=== PATIENT | male | born 1955 | race Hispanic/Latino ===

== ENCOUNTER → 2019-08-31 | Outpatient (RCR) | payer BC | LOC: PT 08-10 10:22 | PROVIDERS: ATTEND Specialist | DX: M87.051 Idiopathic aseptic necrosis of right femur (principal) ==

== ENCOUNTER → 2019-10-01 | Outpatient (RCR) | payer BC | LOC: PT 09-02 10:33 | PROVIDERS: ATTEND Specialist | DX: M87.051 Idiopathic aseptic necrosis of right femur (principal) | CPT/HCPCS: 97139 ==

== ENCOUNTER 2020-12-12 06:33 | Observation (INO) | payer BC ==
[2020-12-11 09:44] LABS: BASOPHILS % 0.4 % (0.0-1.0); EOSINOPHILS # (AUTO) 0.1 (0.0-0.4); EOSINOPHILS % 1.1 % (0.0-6.0); HEMATOCRIT 45.5 % (38.2-49.6); HEMOGLOBIN 14.9 g/dL (14.0-18.0); LYMPHOCYTES # (AUTO) 1.4 (1.0-3.2); LYMPHOCYTES % 19.3 % (18.0-39.1); MEAN CORPUSCULAR HEMOGLOBIN 32.6 pg (28-32); MEAN CORPUSCULAR HGB CONC 32.7 g/dL (31-35); MEAN CORPUSCULAR VOLUME 99.6 fL (81-99); MONOCYTES # (AUTO) 0.9 (0.2-0.8); MONOCYTES % 11.7 % (4.4-11.3); NEUTROPHILS # (AUTO) 4.9 (2.1-6.9); NEUTROPHILS % 67.1 % (38.7-80.0); PLATELET COUNT 217 x10e3/uL (140-360); RED BLOOD COUNT 4.57 x10e6/uL (4.3-5.7); RED CELL DISTRIBUTION WIDTH 14.4 % (11.7-14.4)
[~2020-12-12] VITALS: Ht 167.6 cm; Wt 78.9 kg
[~2020-12-12 06:33] MED LIST: CHOLESTEROL MED
[2020-12-12] MEDS ORDERED: CELECOXIB 200 MG CAP ONE (07:01)
[2020-12-12] MEDS ORDERED: DEXAMETHASONE SOD PHOS 10 MG/1 ML VIAL ONE (07:01)
[2020-12-12] MEDS ORDERED: SODIUM CHLORIDE 0.9% 50ML 100 ML ONE (07:02)
[2020-12-12] MEDS ORDERED: GABAPENTIN 300 MG CAP ONE (07:02)
[2020-12-12] MEDS ORDERED: SODIUM CHLORIDE 0.9% 500ML 500 ML ONE (07:17)
[2020-12-12] MEDS ORDERED: TRANEXAMIC ACID 1,000 MG/10 ML ML ONE (07:18)
[2020-12-12] MEDS ORDERED: Vancomycin IV 1,000 MG ONE (07:18)
[2020-12-12] MEDS ORDERED: GLUCOSAMIN-CHO1 EACH PO (07:28)
[2020-12-12] MEDS ORDERED: ROPIVACAINE 246.25 MG, EPINEPHRINE HCL 1:1000 1ML 0.5 MG, CLONIDINE HCL 0.08 MG, KETORO... INJ ONE ×5 (08:00)
[2020-12-12] MEDS ORDERED: BUPIVACAINE 7.5MG/ML /DEXTROSE 82.5MG/ML 2 ML AMP INJ ONE (08:25)
[2020-12-12] MEDS ORDERED: HYDROCODONE/APAP 5MG-325MG TAB PO PRN (10:15)
[2020-12-12] MEDS ORDERED: ACETAMINOPHEN 650 MG SUPP PR PRN (10:15)
[2020-12-12] MEDS ORDERED: ONDANSETRON HCL INJ 2MG/ML 2ML 2 MG/ML VIAL IV PRN (10:15)
[2020-12-12] MEDS ORDERED: DIPHENHYDRAMINE HCL INJ 50 MG/ML VIAL IV PRN (10:15)
[2020-12-12] MEDS ORDERED: SODIUM CHLORIDE 0.9% 1000ML 1,000 ML IV SCH (10:15)
[2020-12-12] MEDS ORDERED: KETOROLAC TROMETHAMINE 30 MG/ML VIAL IV PRN (10:15)
[2020-12-12] MEDS ORDERED: HYDROCODONE/APAP 7.5MG-325MG 1 EA TAB PO PRN (10:15)
[2020-12-12] MEDS ORDERED: DOCUSATE SODIUM 100 MG CAP PO PRN (10:15)
[2020-12-12 11:09] VITALS: BP 122/65
[2020-12-12 11:15] VITALS: BP 122/65
[2020-12-12 11:45] VITALS: BP 116/61
[2020-12-12] MEDS ORDERED: ACETAMINOPHEN 1000 MG/100 ML IV PRN (12:00)
[2020-12-12 15:15] VITALS: BP 107/67
[2020-12-12] MEDS ORDERED: CELECOXIB 100 MG CAP PO SCH (17:00)
[2020-12-12] MEDS ORDERED: Cefazolin 1 GM in SODIUM CHLORIDE 0.9% 50ML 50 ML IV SCH (17:00)
[2020-12-12] MEDS ORDERED: ASPIRIN 325 MG TAB PO SCH (17:00)
[2020-12-12] MEDS ORDERED: ZOLPIDEM TARTRATE 5 MG TAB PO PRN (21:00)
== END 2020-12-12 21:26 | disposition home or self-care (01) ==
LOC: OR 06:33 → PACU V 10:23 → MED/SURG 11:17
PROVIDERS: ADMIT Specialist; ATTEND Specialist
DX: M87.851 Other osteonecrosis, right femur (principal); J45.909 Unspecified asthma, uncomplicated; E78.5 Hyperlipidemia, unspecified; Z01.812 Encounter for preprocedural laboratory examination; Z20.822 Contact with and (suspected) exposure to COVID-19
CPT/HCPCS: 27130; 36415; 72170; 85025; 86850; 86900; 86920; 93005; 97116; 97161; 97530; G0378; J0171; J0690; J1100; J1885; J2795; J3370; J7040; U0002